=== PATIENT | female | born 1960 | race African-American/Black ===

== ENCOUNTER 2019-03-31 14:11 | Emergency (ER) | payer OTHER ==
[2019-03-31 14:19] VITALS: BP 152/70; PULSE 90; TEMP 97.9; BMI 27.2
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
[2019-03-31] MEDS ORDERED: CLINDAMYCIN HCL 150 MG CAPSULE (FP) ONE (16:00)
[2019-03-31] MEDS ORDERED: ACETAMINOPHEN 325 MG TABLET (FP) ONE (16:00)
[2019-03-31] MEDS ORDERED: CLINDAMYCIN HCL 300 MG CAPSULE PO ONE (16:05)
[2019-03-31] MEDS ORDERED: ACETAMINOPHEN 325 MG TABLET (FP) PO ONE (16:11)
== END 2019-03-31 16:27 | disposition home or self-care (01) ==
LOC: JER 14:11
DX: L03.032 Cellulitis of left toe (principal); S99.822A Other specified injuries of left foot, initial encounter; S92.425A Nondisplaced fracture of distal phalanx of left great toe, initial encounter for closed fracture; W19.XXXA Unspecified fall, initial encounter; Y93.89 Activity, other specified; Y92.89 Other specified places as the place of occurrence of the external cause; Y99.8 Other external cause status; Z72.0 Tobacco use
CPT/HCPCS: 73630-TC-LT; 73660-TC-LT-FY; 99282-25

== ENCOUNTER 2019-06-08 04:56 | Emergency (ER) | payer OTHER ==
[2019-06-08 05:09] VITALS: BMI 28.0
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
[2019-06-08] MEDS ORDERED: ALBUTEROL SO4 0.083% IH SOL 2.5 MG/3 ML VIAL.NEB. NEB ONE ×2 (05:24→05:32)
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
--- NOTE | 2019-06-08 07:11 | PDOC ---
*Physical Exam - Vital Signs Last Vital Signs Temp Pulse Resp BP Pulse Ox 98.1 F 73 20 144/81 100 06/08/19 05:07 06/08/19 05:07 06/08/19 05:07 06/08/19 05:07 06/08/19 05:07 - Physical Exam 06/08/19 07:11 Received sign out from Dr. Rodriguez ED Treatment Course - Medications Given in the ED: ED Medications Discontinued Medications Generic Name Dose Route Start Last Admin Trade Name Frederick PRN Reason Stop Dose Admin Albuterol Sulfate 1 amp 06/08/19 05:24 06/08/19 05:36 Ventolin 0.083% Nebulizer Soln - NEB 06/08/19 05:25 1 amp ONCE ONE Administration Medical Decision Making - Medical Decision Making I reassessed the patient. She is A&Ox3 and is able to ambulate throughout the department without deficit and on her own volition The patient was concerned as to how she arrived into the emergency department. I explained to the patient to contact the ambulance company ([employer]) to get records on where the call was made and where they picked her up. She was concerned about her computer bag of which to the best of my knowledge there was no computer bag on her person when she presented to the emergency department. I explained to the patient to follow up with her PMD within 1 week after discharge. The patient was discharged. CT head and cervical spine were negative for acute process. The patient states she will be taking a taxi from the ED and not be driving. Discharge - Discharge Information Problems reviewed: Yes Clinical Impression/Diagnosis: Intoxication Condition: Stable Disposition: HOME - Follow up/Referral Referrals: Dameon Tony MD [Primary Care Provider] - - Patient Discharge Instructions Additional Instructions: You were seen in the emergency room for hitting your head while intoxicated. The CT scan is normal and you do not have bleed or fracture. Please drink responsibly. Come back to the emergency room if you start vomiting, have worsening headache, have abdominal pain, have difficulty breathing or if any new or concerning symptom develops. Thank you - Post Discharge Activity
[2019-06-08 10:51] VITALS: BP 145/76; PULSE 86; TEMP 97
== END 2019-06-08 10:10 | disposition home or self-care (01) ==
LOC: JER 04:56
PROC: 3E0F7GC Introduction of Other Therapeutic Substance into Respiratory Tract, Via Natural or Artificial Opening (ICD-10-PCS; principal; 2019-06-08)
DX: F10.929 Alcohol use, unspecified with intoxication, unspecified (principal); S00.83XA Contusion of other part of head, initial encounter; W18.39XA Other fall on same level, initial encounter; Y93.89 Activity, other specified; Y92.59 Other trade areas as the place of occurrence of the external cause; Y99.8 Other external cause status
CPT/HCPCS: 70450-TC; 72125-TC; 94640; 99283-25

== ENCOUNTER 2022-03-17 04:29 | Day surgery (SDC) | payer OTHER ==
[2022-03-16 09:45] VITALS: BMI 24.8
[2022-03-17 12:12] VITALS: BP 154/83; PULSE 75; RESP 18; TEMP 98
== END 2022-03-17 12:12 | disposition home or self-care (01) ==
LOC: JASU-ENDO 04:29
PROVIDERS: ATTEND Internal Medicine Gastroenterology
PROC: 0DJD8ZZ Inspection of Lower Intestinal Tract, Via Natural or Artificial Opening Endoscopic (ICD-10-PCS; principal; 2022-03-17 10:00)
DX: Z12.11 Encounter for screening for malignant neoplasm of colon (principal); Z86.010 Personal history of colon polyps; K57.30 Diverticulosis of large intestine without perforation or abscess without bleeding; K64.8 Other hemorrhoids